=== PATIENT | female | born 1990 | race Caucasian/White ===

== ENCOUNTER 2019-03-27 06:36 | Inpatient (IN) ==
[2019-03-27] MEDS ORDERED: *HR* Nalbuphine 10 MG/ML AMPUL IVP PRN (07:23)
[2019-03-27] MEDS ORDERED: Famotidine 20 MG/2 ML VIAL IVP PRN (07:23)
[2019-03-27] MEDS ORDERED: Ondansetron 4 MG/2 ML VIAL IVP PRN ×2 (07:23→10:29)
[2019-03-27] MEDS ORDERED: Metoclopramide 10 MG/2 ML VIAL IVP PRN (07:23)
[2019-03-27] MEDS ORDERED: Naloxone 0.4 MG/ML INJ IVP PRN ×2 (07:23→10:29)
[2019-03-27 07:39] LABS: Basophils # 0.1 K/mcL (0.0-0.2); Basophils % 0.7 %; Eosinophils # 0.1 K/mcL (0.0-0.6); Eosinophils % 0.7 %; Hematocrit 37.3 % (35.3-44.9); Hemoglobin 13.6 g/dL (11.5-15.4); Immature Granulocytes % 0.7 % (0-4); Lymphocytes # 1.9 K/mcL (0.6-4.6); Lymphocytes % 26.9 %; Mean Corpuscular HGB Conc 36.5 g/dL (31.6-35.5); Mean Corpuscular Hemoglobin 32.9 pg (28.0-33.3); Mean Corpuscular Volume 90.1 fL (83.0-100.0); Mean Platelet Volume 10.4 fL (9.4-12.4); Monocytes # 0.6 K/mcL (0.0-1.3); Monocytes % 7.9 %; Neutrophils # 4.5 K/mcL (1.6-8.9); Platelet Count 199 K/mcL (140-400); Red Blood Count 4.14 M/mcL (3.82-4.97); Segmented Neutrophils % 63.1 %; White Blood Count 7.1 K/mcL (4.3-11.1)
[2019-03-27 07:57] LABS: Alanine Aminotransferase 14 Units/L (7-52); Aspartate Amino Transferase 12 Units/L (13-39); BUN/Creatinine Ratio 12 (6-26); Blood Urea Nitrogen 6 mg/dL (6-20); Lactate Dehydrogenase 135 Units/L (140-271); Uric Acid 2.4 mg/dL (2.3-7.6); eGFR For African Americans > 60 (> 60); eGFR For Non-African Americans > 60 (> 60)
[2019-03-27 08:29] LABS: Glucose 103 mg/dL (70-105)
[2019-03-27] MEDS: Ringers Solution, Lactated 1,000 ML IVC SCH ×2 (09:52→19:59)
[2019-03-27] MEDS: Oxytocin 20 units/ LR 1000 mL 20 UNIT/1,000 ML BAG IVC SCH ×2 (10:08→23:22)
[2019-03-27] MEDS ORDERED: *HR* FentaNYL (PF) 100 MCG/2 ML VIAL EP ONE (10:29)
[2019-03-27] MEDS ORDERED: Ropivacaine/PF 0.2% 20 ML VIAL EP ONE (10:29)
[2019-03-27] MEDS ORDERED: EPHEDrine 50 MG/ML VIAL IVP PRN (10:29)
[2019-03-27] MEDS ORDERED: Epidural Premix (fent/bupiv) 110 ML EP SCH (10:30)
[2019-03-27] MEDS ORDERED: *HR* FentaNYL (PF) 100 MCG/2 ML VIAL ONE (15:23)
[2019-03-27] MEDS ORDERED: Ropivacaine/PF 0.2% 20 ML VIAL ONE (15:24)
[2019-03-28] MEDS ORDERED: Rho Immune Globulin 1,500 UNIT SYRINGE IM PRN (00:38)
[2019-03-28] MEDS ORDERED: Measles/Mumps/Rubella Vacc 0.5 ML VIAL SQ PRN (00:38)
[2019-03-28] MEDS ORDERED: Oxytocin 20 units/ LR 1000 mL 20 UNIT/1,000 ML BAG IVC ONE (00:38)
[2019-03-28] MEDS ORDERED: Acetaminophen 325 MG TABLET PO PRN (00:38)
[2019-03-28] MEDS ORDERED: Oxytocin 20 units/ LR 1000 mL 20 UNIT/1,000 ML BAG IVC SCH (00:38)
[2019-03-28] MEDS ORDERED: Benzocaine/Menthol 56 GM AEROSOL SPRAY TP PRN (00:38)
[2019-03-28] MEDS ORDERED: Lanolin 7 G OINT...G. TP PRN (00:38)
[2019-03-28] MEDS: Ibuprofen 600 MG TABLET PO PRN ×3 (03:57→20:47)
[2019-03-28 05:49] LABS: Basophils % 0.2 %; Eosinophils % 0.1 %; Hematocrit 34.3 % (35.3-44.9); Hemoglobin 12.6 g/dL (11.5-15.4); Immature Granulocytes % 0.5 % (0-4); Lymphocytes # 1.1 K/mcL (0.6-4.6); Lymphocytes % 6.9 %; Mean Corpuscular HGB Conc 36.7 g/dL (31.6-35.5); Mean Corpuscular Hemoglobin 33.2 pg (28.0-33.3); Mean Corpuscular Volume 90.3 fL (83.0-100.0); Mean Platelet Volume 10.7 fL (9.4-12.4); Monocytes # 0.9 K/mcL (0.0-1.3); Monocytes % 6.1 %; Neutrophils # 13.2 K/mcL (1.6-8.9); Platelet Count 164 K/mcL (140-400); Red Cell Distribution Width 12.7 % (11.5-14.5); Segmented Neutrophils % 86.2 %
[2019-03-28 05:50] LABS: White Blood Count 15.3 K/mcL (4.3-11.1)
[2019-03-28] MEDS: Prenatal Vit/FA 1 EACH TABLET PO SCH (08:06)
[2019-03-28 21:01] VITALS: BP 123/78
[2019-03-29] MEDS: Ibuprofen 600 MG TABLET PO PRN (09:37)
[2019-03-29] MEDS: Prenatal Vit/FA 1 EACH TABLET PO SCH (09:38)
== END 2019-03-29 13:00 | disposition home or self-care (01) | DRG 560 ==
LOC: 1NENULAB 06:36 → 1NENUOBS 03-28 02:58
PROVIDERS: ADMIT Student in an Organized Health Care Education/Training Program; ATTEND Student in an Organized Health Care Education/Training Program

== ENCOUNTER 2021-01-13 05:51 | Inpatient (IN) ==
[2021-01-13] MEDS ORDERED: Naloxone 0.4 MG/ML INJ IVP PRN (06:02)
[2021-01-13] MEDS ORDERED: Lidocaine 1% 20 ML MDV INFILT PRN (06:02)
[2021-01-13] MEDS ORDERED: Ondansetron 4 MG/2 ML VIAL IVP PRN (06:02)
[2021-01-13] MEDS ORDERED: *HR* Nalbuphine 10 MG/ML AMPUL IV PRN (06:02)
[2021-01-13] MEDS ORDERED: Famotidine 20 MG/2 ML VIAL IVP PRN (06:02)
[2021-01-13] MEDS ORDERED: Metoclopramide 10 MG/2 ML VIAL IVP PRN (06:02)
[2021-01-13] MEDS ORDERED: Azithromycin 500 MG in 0.9 % Sodium Chloride 250 ML IVPB PRN (06:02)
[2021-01-13] MEDS ORDERED: miSOPROStoL 25 MCG TABLET PO PRN (06:02)
[2021-01-13] MEDS: Ringers Solution, Lactated 1,000 ML IVC SCH ×2 (06:48→12:06)
[2021-01-13 06:55] LABS: Basophils % 0.5 %; Eosinophils # 0.1 K/mcL (0.0-0.6); Eosinophils % 1.1 %; Hematocrit 33.5 % (35.3-44.9); Hemoglobin 11.5 g/dL (11.5-15.4); Immature Granulocytes % 0.6 % (0-4); Mean Corpuscular HGB Conc 34.3 g/dL (31.6-35.5); Mean Corpuscular Hemoglobin 29.6 pg (28.0-33.3); Mean Corpuscular Volume 86.1 fL (83.0-100.0); Mean Platelet Volume 10.8 fL (9.4-12.4); Monocytes # 0.5 K/mcL (0.0-1.3); Monocytes % 6.8 %; Neutrophils # 4.1 K/mcL (1.6-8.9); Platelet Count 214 K/mcL (140-400); Red Blood Count 3.89 M/mcL (3.82-4.97); Red Cell Distribution Width 13.2 % (11.5-14.5); White Blood Count 6.6 K/mcL (4.3-11.1)
[2021-01-13 07:28] LABS: Influenza A PCR Negative (Negative); Influenza B PCR Negative (Negative); Resp. Syncytial Virus PCR Negative (Negative)
[2021-01-13 07:29] LABS: SARS-CoV-2 by PCR (In House) Negative (Negative)
[2021-01-13] MEDS ORDERED: Epidural Premix (fent/bupiv) 110 ML EP ONE (08:13)
[2021-01-13] MEDS ORDERED: Epidural Premix (fent/bupiv) 110 ML EP SCH (08:30)
[2021-01-13] MEDS ORDERED: EPHEDrine 50 MG/ML VIAL IVP PRN (08:30)
[2021-01-13] MEDS ORDERED: *HR* Phenylephrine 10 MG/ML VIAL ONE (08:58)
[2021-01-13] MEDS ORDERED: Oxytocin 20 units/ LR 1000 mL 20 UNIT/1,000 ML BAG IVC SCH ×2 (15:45→20:36)
[2021-01-13] MEDS ORDERED: *HR* Ropivacaine/PF 0.5% 20 ML VIAL ONE (17:33)
[2021-01-13 18:00] LABS: Amphetamine Screen,Urine Negative ng/mL (Cutoff=1000); Barbiturate Screen,Urine Negative ng/mL (Cutoff=200); Benzodiazepines Screen,Urine Negative ng/mL (Cutoff=200); Cannabinoid Screen,Urine Negative ng/mL (Cutoff = 50); Cocaine Screen,Urine Negative ng/mL (Cutoff= 300); Opiate Screen,Urine Negative ng/mL (Cutoff=300); Phencyclidine Screen,Urine Negative ng/mL (Cutoff=25)
[2021-01-13] MEDS ORDERED: Lanolin 7 G OINT...G. TP PRN (20:36)
[2021-01-13] MEDS ORDERED: Measles/Mumps/Rubella Vacc 0.5 ML VIAL SQ PRN (20:36)
[2021-01-13] MEDS ORDERED: Rho Immune Globulin 1,500 UNIT SYRINGE IM PRN (20:36)
[2021-01-13] MEDS ORDERED: Benzocaine/Menthol 56 GM AEROSOL SPRAY TP PRN (20:36)
[2021-01-13] MEDS ORDERED: Ondansetron ODT 4 MG TAB.RAPDIS SL PRN (20:36)
[2021-01-13] MEDS: Acetaminophen 325 MG TABLET PO SCH (22:09)
[2021-01-13] MEDS: Ibuprofen 600 MG TABLET PO SCH (22:09)
[2021-01-14] MEDS: Acetaminophen 325 MG TABLET PO SCH ×2 (03:38→08:51)
[2021-01-14] MEDS: Ibuprofen 600 MG TABLET PO SCH ×2 (03:38→08:51)
[2021-01-14 05:17] LABS: Basophils % 0.3 %; Eosinophils % 0.3 %; Hematocrit 33.2 % (35.3-44.9); Immature Granulocytes % 0.6 % (0-4); Lymphocytes # 1.6 K/mcL (0.6-4.6); Lymphocytes % 16.1 %; Mean Corpuscular HGB Conc 33.1 g/dL (31.6-35.5); Mean Corpuscular Hemoglobin 29.1 pg (28.0-33.3); Mean Corpuscular Volume 87.8 fL (83.0-100.0); Mean Platelet Volume 11.4 fL (9.4-12.4); Monocytes # 0.7 K/mcL (0.0-1.3); Monocytes % 6.6 %; Neutrophils # 7.5 K/mcL (1.6-8.9); Platelet Count 206 K/mcL (140-400); Red Blood Count 3.78 M/mcL (3.82-4.97); Red Cell Distribution Width 13.1 % (11.5-14.5); Segmented Neutrophils % 76.1 %; White Blood Count 9.9 K/mcL (4.3-11.1)
[2021-01-14] MEDS ORDERED: Prenatal Vit/FA 1 EACH TABLET PO SCH (09:00)
[2021-01-14 16:31] VITALS: BP 129/82; PULSE 82; TEMP 98; O2SAT 97
== END 2021-01-14 19:21 | disposition home or self-care (01) | DRG 560 ==
LOC: 1NENULAB 05:51 → 1NENUOBS 20:52
PROVIDERS: ADMIT Student in an Organized Health Care Education/Training Program; ATTEND Student in an Organized Health Care Education/Training Program